=== PATIENT | female | born 1975 | race Caucasian/White ===

== ENCOUNTER 2018-01-02 19:21 | Emergency (ER) | payer OTHER ==
[~2018-01-02] VITALS: Ht 160 cm; Wt 63.5 kg
[~2018-01-02 19:21] MED LIST: ALBUTEROL INHAL17 GM IH; AVELOX 400 MG400 MG PO; BACTRIM DS TAB1 EACH PO; KEFLEX500 M1 PO; KEFLEX500 MG PO; NAPROSYN500 MG PO; NOHOMEMEDICATIONS; NORCO 5-325 TA1 EAC1 PO; PHENERGAN-CODE120 ML PO; TRAMADOL 50 MG50 MG PO
[2018-01-02] MEDS ORDERED: NOHOMEMEDICATIONS (19:33)
[2018-01-02] MEDS ORDERED: ACETAMINOPHEN-1 EAC1 PO (20:30)
[2018-01-02 20:40] VITALS: BP 124/74
== END 2018-01-02 20:41 | disposition home or self-care (01) ==
LOC: M.ERS 19:21
DX: M25.511 Pain in right shoulder (principal); F17.200 Nicotine dependence, unspecified, uncomplicated; Z88.0 Allergy status to penicillin

== ENCOUNTER 2018-07-10 08:31 | Emergency (ER) | payer OTHER ==
[~2018-07-10] VITALS: Ht 157.5 cm; Wt 61.2 kg
[~2018-07-10 08:31] MED LIST changes: +ACETAMINOPHEN-1 EAC1 PO
[2018-07-10] MEDS ORDERED: BACTRIM DS TAB1 EACH PO (09:37)
[2018-07-10 09:44] VITALS: BP 110/66
== END 2018-07-10 09:45 | disposition home or self-care (01) ==
LOC: M.ERS 08:31
DX: L03.115 Cellulitis of right lower limb (principal); L97.419 Non-pressure chronic ulcer of right heel and midfoot with unspecified severity; Z88.0 Allergy status to penicillin

== ENCOUNTER 2019-08-28 20:03 | Emergency (ER) | payer OTHER ==
[~2019-08-28] VITALS: Ht 157.5 cm; Wt 61.2 kg
[2019-08-28] MEDS ORDERED: CLEOCIN HCL300 MG PO (21:30)
[2019-08-28] MEDS ORDERED: TRAMADOL 50 MG50 MG PO (21:32)
[2019-08-28 21:57] VITALS: BP 130/86
== END 2019-08-28 21:58 | disposition home or self-care (01) ==
LOC: M.ERS 20:03
DX: N76.4 Abscess of vulva (principal); F17.210 Nicotine dependence, cigarettes, uncomplicated; Z88.0 Allergy status to penicillin; Z98.51 Tubal ligation status

== ENCOUNTER 2019-10-01 14:20 | Emergency (ER) | payer OTHER ==
[~2019-10-01] VITALS: Ht 157.5 cm; Wt 61.2 kg
[~2019-10-01 14:20] MED LIST changes: +CLEOCIN HCL300 MG PO
[2019-10-01] MEDS ORDERED: TYLENOL WITH CO1 TA1 PO (15:38)
[2019-10-01] MEDS ORDERED: ZPAK PO (15:38)
[2019-10-01 16:22] VITALS: BP 122/68
== END 2019-10-01 16:23 | disposition home or self-care (01) ==
LOC: M.ERS 14:20
DX: L50.9 Urticaria, unspecified (principal); H66.93 Otitis media, unspecified, bilateral; J02.9 Acute pharyngitis, unspecified; Z98.51 Tubal ligation status; Z88.0 Allergy status to penicillin

== ENCOUNTER 2020-12-05 17:52 | Emergency (ER) | payer OTHER ==
[~2020-12-05] VITALS: Ht 157.5 cm; Wt 61.2 kg
[~2020-12-05 17:52] MED LIST changes: +TYLENOL WITH CO1 TA1 PO; +ZPAK PO
[2020-12-05] MEDS ORDERED: XANAX1 MG PO (18:11)
[2020-12-05] MEDS ORDERED: ZPAK PO (18:16)
[2020-12-05] MEDS ORDERED: DEXAMETHASONE 44 M1 PO (18:16)
[2020-12-05] MEDS ORDERED: HYDROCODON-ACE1 EAC7 PO (18:16)
[2020-12-05] MEDS ORDERED: VENTOLIN HFA 1818 GM INH (18:16)
[2020-12-05 18:42] VITALS: BP 138/96
== END 2020-12-05 18:43 | disposition home or self-care (01) ==
LOC: M.ERS 17:52
DX: U07.1 COVID-19 (principal); H66.91 Otitis media, unspecified, right ear; F41.9 Anxiety disorder, unspecified; Z98.51 Tubal ligation status; Z79.899 Other long term (current) drug therapy; Z88.0 Allergy status to penicillin

== ENCOUNTER 2021-03-20 19:43 | Emergency (ER) | payer OTHER ==
[~2021-03-20] VITALS: Ht 157.5 cm; Wt 59.9 kg
[~2021-03-20 19:43] MED LIST changes: +DEXAMETHASONE 44 M1 PO; +HYDROCODON-ACE1 EAC7 PO; +VENTOLIN HFA 1818 GM INH; +XANAX1 MG PO
[2021-03-20] MEDS ORDERED: METRONIDAZOLE500 M4 PO (21:47)
[2021-03-20] MEDS ORDERED: DOXYCYCLINE 10100 MG PO (21:47)
[2021-03-20 22:25] VITALS: BP 134/78
== END 2021-03-20 22:27 | disposition home or self-care (01) ==
LOC: M.ERS 19:43
DX: S21.012A Laceration without foreign body of left breast, initial encounter (principal); F41.9 Anxiety disorder, unspecified; Z98.51 Tubal ligation status; Z79.899 Other long term (current) drug therapy; Z88.0 Allergy status to penicillin; W54.0XXA Bitten by dog, initial encounter; Y93.89 Activity, other specified; Y92.89 Other specified places as the place of occurrence of the external cause; Y99.8 Other external cause status

== ENCOUNTER 2021-04-26 01:10 | Emergency (ER) | payer OTHER ==
[~2021-04-26] VITALS: Ht 157.5 cm; Wt 61.2 kg
[~2021-04-26 01:10] MED LIST changes: +DOXYCYCLINE 10100 MG PO; +METRONIDAZOLE500 M4 PO
[2021-04-26] MEDS ORDERED: BACTRIM DS TAB1 EAC1 PO (02:18)
[2021-04-26] MEDS ORDERED: ACETAMINOPHEN-1 EAC2 PO (02:18)
[2021-04-26 02:36] VITALS: BP 156/90
== END 2021-04-26 02:36 | disposition home or self-care (01) ==
LOC: M.ERS 01:10
DX: N61.0 Mastitis without abscess (principal); F41.9 Anxiety disorder, unspecified; Z98.51 Tubal ligation status; Z88.0 Allergy status to penicillin